=== PATIENT | female | born 1995 | race African-American/Black ===

== ENCOUNTER 2022-03-02 10:54 | Emergency (ER) | payer SELFPAY ==
[~2022-03-02] VITALS: Ht 162.6 cm; Wt 101.2 kg
[2022-03-02 10:56] VITALS: BP 150/90
== END 2022-03-02 13:04 | disposition left against medical advice (07) ==
LOC: M ED 10:54
DX: Z53.21 Procedure and treatment not carried out due to patient leaving prior to being seen by health care provider (principal)

== ENCOUNTER 2022-03-02 14:34 | Emergency (ER) | payer OTHER, SELFPAY ==
[~2022-03-02] VITALS: Ht 162.6 cm; Wt 99.4 kg
[2022-03-02 19:53] VITALS: BP 130/78
[2022-03-02 22:35] LABS: BASO % 0.2 % (0.0-1.0); EOS # 0.1 10^3/uL (0.0-0.5); EOS % 1.1 % (0.0-3.0); HEMATOCRIT 38.3 % (36.0-47.0); LYMPH # 3.7 10^3/uL (1.5-5.0); LYMPH % 44.2 % (24.0-44.0); MEAN CORPUSCULAR HEMOGLOBIN 25.4 pg (27.0-33.0); MEAN CORPUSCULAR HGB CONC 31.3 g/dl (32.0-36.5); MEAN CORPUSCULAR VOLUME 81.1 fl (80.0-96.0); MONO # 0.5 10^3/uL (0.0-0.8); MONO % 5.6 % (2.0-8.0); NEUTROPHILS % 48.7 % (36.0-66.0); PLATELET COUNT, AUTOMATED 307 10^3/uL (150-450); RED BLOOD COUNT 4.72 10^6/uL (4.00-5.40); WHITE BLOOD COUNT 8.3 10^3/uL (4.0-10.0)
[2022-03-02 23:05] LABS: MAGNESIUM LEVEL 1.9 MG/DL (1.8-2.4)
[2022-03-02 23:06] LABS: CPK CREATINE PHOSPHOKINASE 102 U/L (34-145)
[2022-03-02 23:07] LABS: BLOOD UREA NITROGEN 10 MG/DL (9-23); CALCIUM LEVEL 9.4 MG/DL (8.5-10.1); CARBON DIOXIDE LEVEL 26 MMOL/L (20-31); CHLORIDE LEVEL 103 MMOL/L (98-107); CREATININE FOR GFR 0.89 MG/DL (0.55-1.30); GLOMERULAR FILTRATION RATE > 60.0 (>60); GLUCOSE, FASTING 104 MG/DL (60-100); POTASSIUM SERUM 4.2 MMOL/L (3.5-5.1); SODIUM LEVEL 137 MMOL/L (136-145)
[2022-03-02 23:11] LABS: HCG, SERUM QUALITATIVE NEGATIVE (NEGATIVE)
[2022-03-03 12:44] LABS: CK-MB VALUE MASS < 1.0 NG/ML (<3.6); MB/CK RELATIVE INDEX 0.98 (< OR =4)
== END 2022-03-03 00:20 | disposition home or self-care (01) ==
LOC: M ED 14:34
DX: R07.89 Other chest pain (principal)

== ENCOUNTER 2022-03-23 19:49 | Emergency (ER) | payer OTHER ==
[~2022-03-23] VITALS: Ht 162.6 cm; Wt 102.3 kg
[2022-03-23 22:23] LABS: HEMATOCRIT 39.8 % (36.0-47.0); HEMOGLOBIN 12.4 g/dl (12.0-15.5); MEAN CORPUSCULAR HEMOGLOBIN 25.5 pg (27.0-33.0); MEAN CORPUSCULAR HGB CONC 31.2 g/dl (32.0-36.5); MEAN CORPUSCULAR VOLUME 81.7 fl (80.0-96.0); PLATELET COUNT, AUTOMATED 321 10^3/uL (150-450); RED BLOOD COUNT 4.87 10^6/uL (4.00-5.40)
[2022-03-23 22:48] LABS: BLOOD UREA NITROGEN 9 MG/DL (9-23); CALCIUM LEVEL 9.6 MG/DL (8.5-10.1); CARBON DIOXIDE LEVEL 30 MMOL/L (20-31); CHLORIDE LEVEL 103 MMOL/L (98-107); GLOMERULAR FILTRATION RATE > 60.0 (>60); GLUCOSE, FASTING 89 MG/DL (60-100); POTASSIUM SERUM 4.6 MMOL/L (3.5-5.1); SODIUM LEVEL 138 MMOL/L (136-145)
[2022-03-24] MEDS ORDERED: KETOROLAC 30 MG/ML 1ML VIAL IV ONE (05:25)
[2022-03-24] MEDS ORDERED: METOCLOPRAMIDE INJ 10MG/2ML VIAL IV ONE (05:25)
[2022-03-24] MEDS ORDERED: NS 1,000 ML IV ONE (05:25)
[2022-03-24] MEDS ORDERED: NORG0.25 (05:26)
[2022-03-24 06:30] VITALS: BP 112/63
== END 2022-03-24 07:05 | disposition home or self-care (01) ==
LOC: M ED 19:49
DX: R51.9 Headache, unspecified (principal); Z79.3 Long term (current) use of hormonal contraceptives
CPT/HCPCS: 80048; 85027; 96361; 96374; 96375; 99284; J1885; J2765

== ENCOUNTER → 2022-04-08 | Outpatient (REF) | payer OTHER ==
[~2022-04-08] MED LIST: NORG0.25
[2022-04-08 21:28] LABS: URINE PREG TEST NEGATIVE (NEGATIVE)
== END ==
LOC: M LAB REF 21:18
PROVIDERS: ATTEND Physician Assistant
DX: N91.2 Amenorrhea, unspecified (principal)